=== PATIENT | female | born 1940 | race Caucasian/White ===

== ENCOUNTER 2019-04-04 09:50 | Emergency (ER) | payer MEDICARE, MEDICAID ==
[~2019-04-04] VITALS: Ht 160 cm; Wt 86.8 kg
[~2019-04-04 09:50] MED LIST: ESOM20CA PO; HYDR-3973 PO; PRAV20TA4 PO
[2019-04-04 10:56] LABS: BASOPHILS % (AUTO) 0.7 % (0-1); EOSINOPHILS # (AUTO) 0.1 X10'3 (0-0.9); EOSINOPHILS % (AUTO) 1.2 % (0-6); HEMOGLOBIN 12.9 g/dl (12.0-16.0); LYMPHOCYTES # (AUTO) 1.4 X10'3 (1.1-4.8); LYMPHOCYTES % (AUTO) 25.7 % (21-51); MEAN CORPUSCULAR HEMOGLOBIN 29.8 PG (27.0-31.0); MEAN CORPUSCULAR HGB CONC 33.2 g/dL (33.0-36.5); MEAN PLATELET VOLUME 9.7 FL (7.4-10.4); MONOCYTES # (AUTO) 0.5 X10'3 (0-0.9); MONOCYTES % (AUTO) 8.5 % (2-12); NEUTROPHILS # (AUTO) 3.5 X10'3 (1.8-7.7); NEUTROPHILS % (AUTO) 63.9 % (42-75); PLATELET COUNT 264 X10'3 (140-440); RED BLOOD COUNT 4.34 X10'6 (4.20-5.60); RED CELL DISTRIBUTION WIDTH 13.5 % (11.5-14.5); WHITE BLOOD COUNT 5.5 X10'3 (4.5-11.0)
[2019-04-04 11:11] LABS: PARTIAL THROMBOPLASTIN TIME 26 SECONDS (22-32)
[2019-04-04 11:12] LABS: ALANINE AMINOTRANSFERASE 37 U/L (12-78); ALBUMIN 3.6 G/DL (3.4-5.0); ALBUMIN/GLOBULIN RATIO 0.9 (1.1-1.5); ALKALINE PHOSPHATASE 71 IU/L (46-116); ANION GAP 8 (8-16); ASPARTATE AMINO TRANSFERASE 21 U/L (10-37); BILIRUBIN,TOTAL 0.4 MG/DL (0.1-1.0); BLOOD UREA NITROGEN 17 MG/DL (7-18); BUN/CREATININE RATIO 17.5 (6.6-38.0); CALCIUM 8.7 MG/DL (8.5-10.1); CHLORIDE 107 MMOL/L (99-107); CREATININE 0.97 MG/DL (0.40-0.90); GLUCOSE 102 MG/DL (70-104); POTASSIUM 4.1 MMOL/L (3.5-5.1); SODIUM 140 MMOL/L (135-145); TOTAL PROTEIN 7.5 G/DL (6.4-8.2); eGFR 56 ML/MIN
[2019-04-04] MEDS ORDERED: meclizine 12.5mg tablet PO ONE (12:25)
[2019-04-04] MEDS ORDERED: MECL-111 PO (12:45)
[2019-04-04 13:41] VITALS: BP 171/79
== END 2019-04-04 13:42 | disposition home or self-care (01) ==
LOC: ER 09:50
DX: R42 Dizziness and giddiness (principal); H55.09 Other forms of nystagmus; Z88.5 Allergy status to narcotic agent; Z79.899 Other long term (current) drug therapy
CPT/HCPCS: 36415; 71045; 80053; 84484; 85025; 85610; 85730; 93005; 99284; J8597

== ENCOUNTER 2024-08-06 13:26 | Outpatient (CLI) | payer BC, MEDICAID ==
[~2024-08-06 13:26] MED LIST changes: +MECL-302 PO
== END 2024-08-06 23:59 | disposition home or self-care (01) ==
LOC: MRI 13:26
PROVIDERS: ATTEND Family Medicine
DX: M75.52 Bursitis of left shoulder (principal); M89.312 Hypertrophy of bone, left shoulder; M85.612 Other cyst of bone, left shoulder; M25.512 Pain in left shoulder
CPT/HCPCS: 73221

== ENCOUNTER 2024-08-17 08:06 | Emergency (ER) | payer BC, MEDICAID ==
[~2024-08-17] VITALS: Ht 160 cm; Wt 95.0 kg
[2024-08-17 08:15] VITALS: BP 205/79; PULSE 80; RESP 18; O2SAT 96
[2024-08-17] MEDS ORDERED: HYDR-3686 PO (09:29)
[2024-08-17] MEDS ORDERED: LORA-269 PO (09:29)
[2024-08-17 09:36] VITALS: TEMP 98.5
== END 2024-08-17 09:38 | disposition home or self-care (01) ==
LOC: ER 08:06
DX: F41.0 Panic disorder [episodic paroxysmal anxiety] (principal); F41.9 Anxiety disorder, unspecified; Z88.5 Allergy status to narcotic agent; Z79.899 Other long term (current) drug therapy
CPT/HCPCS: 99283